=== PATIENT | female | born 1940 ===

== ENCOUNTER 2021-01-10 05:50 | Day surgery (SDC) | payer OTHER ==
[2021-01-24] MEDS ORDERED: PLAVIX75 MG PO (09:48)
[2021-01-24] MEDS ORDERED: TAMOXIFEN CITRA20 MG PO (09:48)
[2021-01-24] MEDS ORDERED: CILOSTAZOL50 MG PO (09:48)
[2021-01-24] MEDS ORDERED: ATACAND32 MG PO (09:49)
[2021-01-24] MEDS ORDERED: HYDROCHLOROTH12.5 MG PO (09:49)
[2021-01-24] MEDS ORDERED: ZOCOR20 MG PO (09:49)
[2021-01-24] MEDS ORDERED: GABAPENTIN300 M2 PO (09:50)
[2021-01-24] MEDS ORDERED: BUMETANIDE1 MG PO (09:50)
[2021-01-24] MEDS ORDERED: COZAAR50 MG PO (09:50)
== END 2021-01-10 11:10 | disposition home or self-care (01) ==
LOC: AMB-ENDOS 05:50
PROVIDERS: ATTEND Surgery
DX: K57.32 Diverticulitis of large intestine without perforation or abscess without bleeding (principal); K64.8 Other hemorrhoids

== ENCOUNTER 2021-01-24 14:52 | Inpatient (IN) | payer OTHER ==
[~2021-01-24] VITALS: Ht 165.1 cm; Wt 69.4 kg
[~2021-01-24 14:52] MED LIST: ATACAND32 MG PO; BUMETANIDE1 MG PO; CILOSTAZOL50 MG PO; COZAAR50 MG PO; GABAPENTIN300 M2 PO; HYDROCHLOROTH12.5 MG PO; PLAVIX75 MG PO; TAMOXIFEN CITRA20 MG PO; ZOCOR20 MG PO
[2021-01-24] MEDS ORDERED: GLIPIZIDE XL10 MG (15:14)
[2021-01-29] MEDS ORDERED: PRESERVISION A1 EAC1 (09:35)
[2021-01-29] MEDS ORDERED: DICLOFENAC POTA50 MG (09:35)
[2021-01-30] MEDS ORDERED: CEFDINIR300 MG PO (13:08)
[2021-01-30] MEDS ORDERED: FLAGYL500MG PO (13:08)
[2021-01-30] MEDS ORDERED: INTESTINEX680 M1 PO (13:09)
[2021-01-30] MEDS ORDERED: GABAPENTIN300 MG PO (13:14)
== END 2021-01-31 14:00 | DRG 982 ==
LOC: ER 14:52 → SEC-K 17:30 → SURG 01-26 15:31 → SURH 01-27 10:36
PROVIDERS: ADMIT Surgery; ATTEND Surgery
PROC: 0D1M4Z4 Bypass Descending Colon to Cutaneous, Percutaneous Endoscopic Approach (ICD-10-PCS; principal; 2021-01-24)
PROC: 30233N1 Transfusion of Nonautologous Red Blood Cells into Peripheral Vein, Percutaneous Approach (ICD-10-PCS; 2021-01-24)
PROC: 02HV33Z Insertion of Infusion Device into Superior Vena Cava, Percutaneous Approach (ICD-10-PCS; 2021-01-25)
PROC: 8E0ZXY6 Isolation (ICD-10-PCS; 2021-01-27)
DX: D64.9 Anemia, unspecified (principal); N32.1 Vesicointestinal fistula; B37.49 Other urogenital candidiasis; K57.30 Diverticulosis of large intestine without perforation or abscess without bleeding; B96.1 Klebsiella pneumoniae [K. pneumoniae] as the cause of diseases classified elsewhere; I10 Essential (primary) hypertension; Z79.4 Long term (current) use of insulin; Z20.822 Contact with and (suspected) exposure to COVID-19; Z85.3 Personal history of malignant neoplasm of breast; Z85.038 Personal history of other malignant neoplasm of large intestine; E11.65 Type 2 diabetes mellitus with hyperglycemia